=== PATIENT | female | born 1945 | race Two or more races ===

== ENCOUNTER 2019-11-26 20:46 | Emergency (ER) | payer SELFPAY ==
[~2019-11-26] VITALS: Ht 162.6 cm; Wt 81.6 kg
--- NOTE | 2019-11-26 20:55 | NUR ---
ED Nurse Note: right arm restriction d/t previous breast cancer
[2019-11-26 21:00] VITALS: BP 148/56
[2019-11-26] MEDS ORDERED: Tylenol #3 tab (300mg/30mg) ORAL ONE (21:00)
--- NOTE | 2019-11-26 21:00 | NUR ---
ED Nurse Note: Pt walked into ED from home for c/o L arm pain s/p fall at 1800 today. Pt states she missed a step at home and tripped causing her to fall on her L arm. Pt reports 10/10 aching pain on L arm. Pt has R arm restrictions due to mastectomy on R breast. Pt is aaox4, no cardiac or respiratory distress noted. Will continue to monitor.
--- NOTE | 2019-11-26 21:06 | Emergency Room Report ---
History of Present Illness General Chief Complaint: Upper Extremity Injury Source: Patient Present Illness [facility] This is a 74-year-old female with a history of high blood pressure. She is right-hand dominant. She patient presents with chief complaint of a fall with left wrist and left shoulder pain. She was walking down the steps and missed 1 step and fell forward. She fell on her outstretched hand. This occurred about 3 hours ago. She went to urgent care and they told her to come here. Patient denies any other injury. Pain is 8 out of 10. Worse with movement. No head injury. Better with rest. Pain is 8 out of 10. Allergies: Coded Allergies: No Known Allergies (Unverified , 11/26/19) Patient History Past Medical History: see triage record, old chart reviewed, asthma Past Surgical History: other Pertinent Family History: none Social History: Denies: smoking Now: No Immunizations: other Reviewed Nursing Documentation: PMH: Agreed; PSxH: Agreed Nursing Documentation-PMH Past Medical History: No History, Except For Hx Cardiac Problems: Yes - right breast cancer, Hx Asthma: Yes Review of Systems Eye: Denies: eye pain, blurred vision ENT: Denies: ear pain, nose congestion, throat swelling Respiratory: Denies: cough, shortness of breath Cardiovascular: Denies: chest pain, palpitations Gastrointestinal: Denies: abdominal pain, diarrhea, nausea, vomiting Musculoskeletal: Reports: joint pain; Denies: back pain Skin: Denies: rash Neurological: Denies: headache, numbness Endocrine: Denies: increased thirst, increased urine Hematologic/Lymphatic: Denies: easy bruising All Other Systems: negative except mentioned in HPI Physical Exam Vital Signs Date Time Temp Pulse Resp B/P (MAP) Pulse Ox O2 Delivery O2 Flow Rate FiO2 11/26/19 20:52 97.5 55 16 96 Room Air Vitals unremarkable Sp02 EP Interpretation: reviewed, normal General Appearance: well appearing, no apparent distress, alert Head: normocephalic, atraumatic Eyes: bilateral eye PERRL, bilateral eye EOMI ENT: hearing grossly normal, normal pharynx Neck: full range of motion, supple, no meningismus Respiratory: chest non-tender, lungs clear, normal breath sounds Cardiovascular #1: regular rate, rhythm, no murmur Gastrointestinal: normal bowel sounds, non tender, no mass, no organomegaly, no bruit, non-distended Musculoskeletal: back normal, gait/station normal, tender - This over the left shoulder and left wrist over the distal radius. No deformity seen. Pulse normal. Psychiatric: mood/affect normal Procedures Splinting Splinting : Consent: Verbal Location: Wrist, left Pre-Made Type: velcro Splint: wrist Pre-Proc Neuro Vasc Exam: normal Post-Proc Neuro Vasc Exam: normal Patient Tolerated: Well Complications: None Medical Decision Making Diagnostic Impression: Primary Impression: Sprain of left shoulder Qualified Codes: S43.402A - Unspecified sprain of left shoulder joint, initial encounter Additional Impression: Left wrist sprain Qualified Codes: S63.502A - Unspecified sprain of left wrist, initial encounter ER Course Patient with soft tissue injury from a fall. No fracture dislocation. Patient splinted. Will discharge home. Other X-Ray Diagnostic Results Other X-Ray Diagnostic Results #1: X-Ray ordered: Left shoulder x-rays # of Views/Limited Vs Complete: 3 View Indication: Pain EP Interpretation: Yes Interpretation: no dislocation, no soft tissue swelling, no fractures Impression: No acute disease Electronically Signed by: Felipe Gates MD Other X-Ray Diagnostic Results #2: X-Ray ordered: Left wrist x-rays # of Views/Limited Vs Complete: 3 View Indication: Pain EP Interpretation: Yes Interpretation: no dislocation, no soft tissue swelling, no fractures Impression: No acute disease Electronically Signed by: Felipe Gates MD Last Vital Signs Date Time Temp Pulse Resp B/P (MAP) Pulse Ox O2 Delivery O2 Flow Rate FiO2 11/26/19 20:52 97.5 55 16 96 Room Air Status: improved Disposition: HOME, SELF-CARE Condition: Stable Scripts Acetaminophen With Codeine (T#3) (TYLENOL #3 TAB*) Y Tab 1 TAB ORAL Q8H PRN for For Pain, #20 TAB Prov: Felipe Gates MD 11/26/19 Additional Instructions: Follow-up with your doctor in 7 days. Return if symptoms worsen. Felipe Gates MD Nov 26, 2019 21:06
--- NOTE | 2019-11-26 21:30 | NUR ---
ED Nurse Note: pt placed in splint and sling as requested by ERMD by tech.
[2019-11-26] MEDS ORDERED: ACETAMINOPHEN-1 EAC1 ORAL (21:40)
[2019-11-26 21:45] VITALS: BP 148/56
--- NOTE | 2019-11-26 21:45 | NUR ---
ER DISCHARGE NOTE: Patient is cleared to be discharged per ERMD, pt is aox4, on room air, with stable vital signs. pt was given dc and prescription instructions, pt was able to verbalize understanding, pt id band removed. pt is able to ambulate steadily with cane. pt took all belongings. pt accompanied by daughter.
--- NOTE | 2019-11-27 10:45 | Diagnostic Imaging Report ---
Clinical Indication:Pain, status post fall Technique: 3 views of the left wrist Comparison: None Findings: No acute fractures. No dislocations. The joint spaces are preserved. Impression: Negative
--- NOTE | 2019-11-27 10:52 | Diagnostic Imaging Report ---
Indication: Trauma, pain, status post fall Technique: 3 views of the left shoulder Comparison: none Findings: A small osseous fragment projects adjacent to the greater tuberosity. No other evidence of acute fracture. There are degenerative changes of the acromioclavicular joint. No dislocations. Impression: No osseous fragment adjacent to the greater tuberosity of the humerus. This could represent an old injury, or a focus of calcific tendinosis, but an acute avulsion or osteochondral fracture is also possibility. Correlate with clinical findings. No other acute bony trauma Findings discussed by phone with Dr. Lowe in the emergency room at the time of interpretation
--- NOTE | 2019-11-27 15:44 | Emergency Room Report ---
Physical Exam Vital Signs Date Time Temp Pulse Resp B/P (MAP) Pulse Ox O2 Delivery O2 Flow Rate FiO2 11/26/19 20:52 97.5 55 16 96 Room Air 11/26/19 21:00 148/56 Medical Decision Making Diagnostic Impression: Primary Impression: Sprain of left shoulder Additional Impression: Left wrist sprain ER Course Contacted by radiology regarding read from last night. Possible Osseous fragment adjacent to the greater tuberosity of the humerus which could be calcific tendinosis or acute avulsion or osteochondral fracture. The patient was splinted and is in a sling. Was able to reach family by telephone. She remains in her sling and splint and has been tolerating well. Advised her to follow-up with her PMD for repeat imaging or to be seen by an orthopedic surgeon. Daughter will arrange follow-up. Last Vital Signs Date Time Temp Pulse Resp B/P (MAP) Pulse Ox O2 Delivery O2 Flow Rate FiO2 11/26/19 21:45 97.5 62 16 148/56 97 Room Air Disposition: HOME, SELF-CARE Condition: Stable Scripts Acetaminophen With Codeine (T#3) (TYLENOL #3 TAB*) Y Tab 1 TAB ORAL Q8H PRN for For Pain, #20 TAB Prov: Felipe Gates MD 11/26/19 Referrals: NOT CHOSEN [facility]/,REFERRING (PCP) Patient Instructions: Wrist Sprain, Shoulder Sprain Additional Instructions: Follow-up with your doctor in 7 days. Return if symptoms worsen. Chandu Lowe MD Nov 27, 2019 15:44
== END 2019-11-26 21:45 | disposition home or self-care (01) ==
LOC: EMR 21:40
DX: S63.502A Unspecified sprain of left wrist, initial encounter (principal); S43.402A Unspecified sprain of left shoulder joint, initial encounter; I10 Essential (primary) hypertension; Z85.3 Personal history of malignant neoplasm of breast; W19.XXXA Unspecified fall, initial encounter; Y92.9 Unspecified place or not applicable
CPT/HCPCS: 29125; 99284